=== PATIENT | female | born 1970 | race Hispanic/Latino ===

== ENCOUNTER 2023-03-02 23:07 | Emergency (ER) | payer BC, OTHER ==
[~2023-03-02] VITALS: Ht 165.1 cm; Wt 121.6 kg
[~2023-03-02 23:07] MED LIST: ACET1TAB12 PO; IRON150C13 PO
[2023-03-02 23:09] VITALS: BP 128/84
[2023-03-03 01:14] LABS: BASOPHILS % (AUTO) 0.3 % (0.0-5.0); EOSINOPHILS % (AUTO) 2.3 % (0.0-8.0); HEMATOCRIT 40.4 % (36-48); LYMPHOCYTES % (AUTO) 22.4 % (21.0-51.0); MEAN CORPUSCULAR HGB CONC 32.9 g/dL (32.0-36.0); MEAN CORPUSCULAR VOLUME 88.2 fL (79-99); MONOCYTES % (AUTO) 6.6 % (3.0-13.0); NEUTROPHILS % (AUTO) 68.1 % (40.0-77.0); PLATELET COUNT (AUTO) 273 K/uL (130-400); RED BLOOD CELL COUNT(AUTO) 4.58 MIL/uL (4.00-5.50); RED CELL DISTRIBUTION WIDTH 14.4 % (11.0-15.5); WHITE BLOOD COUNT (AUTO) 9.3 K/uL (4.8-10.8)
[2023-03-03 01:26] LABS: ALBUMIN 3.6 g/dL (3.5-5.0); TOTAL PROTEIN, SERUM 7.1 g/dL (6.0-8.3)
[2023-03-03] MEDS ORDERED: ONDANSETRON 4MG INJ IVP ONE (01:30)
[2023-03-03] MEDS ORDERED: MAG/ALUM/SIMETH 30 ML UDCUP PO ONE (02:30)
[2023-03-03] MEDS ORDERED: LIDOCAINE HCL 2% VISCOUS 15 ML UDCUP PO ONE (02:30)
[2023-03-03] MEDS ORDERED: DICY20TA2 PO (03:26)
== END 2023-03-03 03:53 | disposition home or self-care (01) ==
LOC: EDH 23:07
DX: K80.50 Calculus of bile duct without cholangitis or cholecystitis without obstruction (principal); I10 Essential (primary) hypertension; Z79.899 Other long term (current) drug therapy; Z90.89 Acquired absence of other organs; Z90.710 Acquired absence of both cervix and uterus; Z98.890 Other specified postprocedural states
CPT/HCPCS: 99284; 80053; 83690; 85025; 36415; 96374; J2405